=== PATIENT | female | born 1990 | race Two or more races ===

== ENCOUNTER → 2024-11-12 10:30 | Outpatient (CLI) | payer OTHER | END | disposition home or self-care (01) | LOC: PRENATAL 10:30 | PROVIDERS: ATTEND Obstetrics & Gynecology Maternal & Fetal Medicine | DX: O44.00 Complete placenta previa NOS or without hemorrhage, unspecified trimester (principal); O99.280 Endocrine, nutritional and metabolic diseases complicating pregnancy, unspecified trimester; Z3A.21 21 weeks gestation of pregnancy ==

== ENCOUNTER 2025-02-11 11:04 | Outpatient (CLI) | payer OTHER ==
[~2025-02-11 11:04] MED LIST: SYNTHROID100 MCG PO
== END 2025-02-11 11:05 | disposition home or self-care (01) ==
LOC: PRENATAL 11:04
PROVIDERS: ATTEND Obstetrics & Gynecology Maternal & Fetal Medicine
DX: O26.849 Uterine size-date discrepancy, unspecified trimester (principal); O99.280 Endocrine, nutritional and metabolic diseases complicating pregnancy, unspecified trimester; O24.419 Gestational diabetes mellitus in pregnancy, unspecified control; Z3A.34 34 weeks gestation of pregnancy

== ENCOUNTER 2025-02-15 22:04 | Outpatient (CLI) | payer OTHER ==
[2025-02-15 22:18] VITALS: BP 112/74
[2025-02-15] MEDS ORDERED: BETAMETHASONE ACETATE,SOD PHOS 30 MG/5 ML ML ONE (22:37)
[2025-02-15] MEDS ORDERED: BETAMETHASONE ACETATE,SOD PHOS 30 MG/5 ML ML IM STA (22:54)
[2025-02-15] MEDS ORDERED: SYNTHROID88 MCG PO (22:56)
[2025-02-15] MEDS ORDERED: FOLIC ACID0.8 M1 (22:57)
[2025-02-15] MEDS ORDERED: PRENATAL TABLE1 EAC1 PO (22:57)
[2025-02-15] MEDS ORDERED: RINGERS SOLUTION,LACTATED 1,000 ML IV SCH (23:00)
[2025-02-15] MEDS ORDERED: TERBUTALINE SULFATE 1 MG/ML AMPUL SUBCUTANEO SCH (23:00)
[2025-02-15 23:19] VITALS: BP 112/67; O2SAT 99
[2025-02-16 00:07] LABS: URINE APPEARANCE Clear; URINE BILIRRUBIN Negative (NEGATIVE); URINE BLOOD Negative; URINE COLOR Yellow; URINE GLUCOSE Negative (NEGATIVE); URINE KETONE Negative (NEGATIVE); URINE LEUKOCYTE Trace; URINE NITRATE Negative; URINE PROTEIN Negative (NEGATIVE); URINE UROBILINOGEN 0.2 E.U./dl
[2025-02-16 00:11] LABS: URINE BACTERIA 620.2 uL (0.0-1933); URINE EPITHELIAL CELLS 18.4 uL (0.0-38.8); URINE WBC 23.2 uL (0.0-23.2)
[2025-02-16 00:59] LABS: URINE CAST 0.00 uL (0.0-1.40); URINE RBC 1.6 uL (0.0-20.8)
[2025-02-16 01:10] LABS: BASO % 0.3 % (0.1-1.2); EOS # 0.20 (0.04-0.54); EOS % 2.0 % (0.7-7.0); LYMPH # 1.81 (1.18-3.74); LYMPH % 18.3 % (19.3-53.1); MEAN PLATELET VOLUME 10.40 fl (9.4-12.4); MONO # 0.78 (0.24-0.82); MONO % 7.9 % (4.7-12.5); NEUT # 7.06 (1.56-6.13); NEUT % 71.2 % (34.0-71.1); RED CELL DISTRIBUTION WIDTH 13.6 % (11.6-14.4)
[2025-02-16] MEDS ORDERED: NIFEDIPINE 20 MG CAPSULE PO PRN (01:15)
[2025-02-16 03:31] VITALS: BP 115/65; O2SAT 98
[2025-02-16] MEDS ORDERED: LEVOTHYROXINE SODIUM 100 MCG TABLET PO SCH (06:00)
[2025-02-16] MEDS ORDERED: LEVOTHYROXINE SODIUM 88 MCG TABLET PO SCH (06:00)
[2025-02-16 06:55] VITALS: BP 110/61; O2SAT 98
[2025-02-16] MEDS ORDERED: NIFEDIPINE 30 MG TAB.SA.OSM PO NR (08:45)
[2025-02-16] MEDS ORDERED: FOLIC ACID 1 MG TABLET PO SCH (09:00)
[2025-02-16] MEDS ORDERED: PNV,CALCIUM 72/IRON/FOLIC ACID 1 TAB TABLET PO SCH (09:00)
[2025-02-16 11:42] VITALS: BP 121/68
[2025-02-16] MEDS ORDERED: INSULIN LISPRO 1,000 UNIT/10 ML UNITS SUBCUTANEO PRN (14:30)
[2025-02-16 15:02] VITALS: BP 97/58
[2025-02-16 19:00] VITALS: BP 106/69
[2025-02-16 21:29] VITALS: BP 106/69
[2025-02-16] MEDS ORDERED: BETAMETHASONE ACETATE,SOD PHOS 30 MG/5 ML ML IM NR (23:00)
== END 2025-02-16 20:26 | disposition home or self-care (01) ==
LOC: OBS/DEL 22:04
PROVIDERS: ATTEND Obstetrics & Gynecology
DX: O60.03 Preterm labor without delivery, third trimester (principal); Z3A.33 33 weeks gestation of pregnancy

== ENCOUNTER → 2025-03-07 14:07 | Outpatient (CLI) | payer OTHER ==
[~2025-03-07 14:07] MED LIST changes: +FOLIC ACID0.8 M1; +PRENATAL TABLE1 EAC1 PO; +SYNTHROID88 MCG PO
== END | disposition home or self-care (01) ==
LOC: PRENATAL 14:07
PROVIDERS: ATTEND Obstetrics & Gynecology Maternal & Fetal Medicine
DX: O26.843 Uterine size-date discrepancy, third trimester (principal); O36.8130 Decreased fetal movements, third trimester, not applicable or unspecified; O99.283 Endocrine, nutritional and metabolic diseases complicating pregnancy, third trimester; O24.419 Gestational diabetes mellitus in pregnancy, unspecified control; O36.63X0 Maternal care for excessive fetal growth, third trimester, not applicable or unspecified; Z3A.37 37 weeks gestation of pregnancy

== ENCOUNTER 2025-03-20 05:44 | Inpatient (IN) | payer OTHER ==
[~2025-03-20] VITALS: Ht 157.5 cm; Wt 3.2 kg
[2025-03-20 04:48] VITALS: BP 129/82
[2025-03-20] MEDS ORDERED: RINGERS SOLUTION,LACTATED 1,000 ML IV SCH (06:00)
[2025-03-20 07:30] VITALS: BP 118/72
[2025-03-20 07:51] LABS: URINE APPEARANCE Clear; URINE BILIRRUBIN Negative (NEGATIVE); URINE BLOOD Large; URINE COLOR Yellow; URINE GLUCOSE Negative (NEGATIVE); URINE KETONE Negative (NEGATIVE); URINE LEUKOCYTE Trace; URINE NITRATE Negative; URINE PROTEIN Negative (NEGATIVE); URINE UROBILINOGEN 0.2 E.U./dl
[2025-03-20 07:53] LABS: URINE BACTERIA 386.4 uL (0.0-1933); URINE EPITHELIAL CELLS 6.4 uL (0.0-38.8); URINE RBC 9.5 uL (0.0-20.8); URINE WBC 33.4 uL (0.0-23.2)
[2025-03-20 08:03] LABS: BASO % 0.4 % (0.1-1.2); EOS # 0.11 (0.04-0.54); EOS % 1.5 % (0.7-7.0); LYMPH # 1.75 (1.18-3.74); LYMPH % 23.4 % (19.3-53.1); MEAN PLATELET VOLUME 11.20 fl (9.4-12.4); MONO # 0.63 (0.24-0.82); MONO % 8.4 % (4.7-12.5); NEUT # 4.95 (1.56-6.13); NEUT % 66.0 % (34.0-71.1); RED CELL DISTRIBUTION WIDTH 13.8 % (11.6-14.4)
[2025-03-20 08:09] LABS: INR < 0.93
[2025-03-20 09:15] LABS: URINE CAST 0.14 uL (0.0-1.40)
[2025-03-20 10:10] VITALS: BP 118/72; BP 129/82
[2025-03-20] MEDS ORDERED: MORPHINE SULFATE 4 MG/ML VIAL IV ONE ×2 (11:15→14:45)
[2025-03-20] MEDS ORDERED: OXYTOCIN 500 ML IV SCH (11:15)
[2025-03-20 14:34] VITALS: BP 133/78
[2025-03-20 15:15] VITALS: BP 124/88
[2025-03-20] MEDS ORDERED: ERYTHROMYCIN BASE OPHT 1GM EACH TUBE OP ONE (19:15)
[2025-03-20] MEDS ORDERED: OXYTOCIN 10 UNITS/ML VIAL IV ONE (19:15)
[2025-03-20 20:44] VITALS: BP 122/68
[2025-03-20] MEDS ORDERED: MORPHINE SULFATE 4 MG/ML CARTRIDGE IV SCH (21:00)
[2025-03-21 00:14] VITALS: BP 120/61
[2025-03-21 05:00] VITALS: BP 120/61
[2025-03-21] MEDS ORDERED: OxyCODONE HCL 5 MG TABLET (ROXICODONE) PO SCH (05:00)
[2025-03-21 07:06] LABS: BASO % 0.3 % (0.1-1.2); EOS # 0.01 (0.04-0.54); EOS % 0.1 % (0.7-7.0); LYMPH # 1.49 (1.18-3.74); LYMPH % 8.3 % (19.3-53.1); MEAN PLATELET VOLUME 11.00 fl (9.4-12.4); MONO # 1.16 (0.24-0.82); MONO % 6.4 % (4.7-12.5); NEUT # 15.26 (1.56-6.13); NEUT % 84.5 % (34.0-71.1); RED CELL DISTRIBUTION WIDTH 14.3 % (11.6-14.4)
[2025-03-21] MEDS ORDERED: PNV,CALCIUM 72/IRON/FOLIC ACID 1 TAB TABLET PO SCH (08:00)
[2025-03-21] MEDS ORDERED: DOCUSATE SODIUM 100MG CAP PO SCH (08:00)
[2025-03-21] MEDS ORDERED: SIMETHICONE 125 MG CAPSULE PO SCH (08:00)
[2025-03-21 08:48] VITALS: BP 103/71
[2025-03-21] MEDS ORDERED: ACETAMINOPHEN 500 MG GEL..CAP PO PRN (11:15)
[2025-03-21] MEDS ORDERED: LEVOTHYROXINE SODIUM 125 MCG TABLET PO NR (11:45)
[2025-03-21 16:38] VITALS: BP 126/73
[2025-03-22] VITALS: BP 116/72
[2025-03-22] MEDS ORDERED: LEVOTHYROXINE SODIUM 125 MCG TABLET PO SCH (06:00)
[2025-03-22 08:50] VITALS: BP 100/72
[2025-03-22 16:13] VITALS: BP 121/77
[2025-03-23] VITALS: BP 114/72
[2025-03-23 09:34] VITALS: BP 116/71
[2025-03-23 16:00] VITALS: BP 135/75
== END 2025-03-23 20:16 | disposition home or self-care (01) | DRG 788 ==
LOC: OBS/DEL 05:44 → OB/GYN 11:00 → LDR 11:00 → OB/GYN 18:44
PROVIDERS: Obstetrics & Gynecology; ADMIT Obstetrics & Gynecology; ATTEND Obstetrics & Gynecology
PROC: BY4FZZZ Ultrasonography of Third Trimester, Single Fetus (ICD-10-PCS; 2025-03-20)
PROC: 4A1HXCZ Monitoring of Products of Conception, Cardiac Rate, External Approach (ICD-10-PCS; 2025-03-20)
PROC: 10D00Z1 Extraction of Products of Conception, Low, Open Approach (ICD-10-PCS; principal; 2025-03-20 16:15)
DX: O82 Encounter for cesarean delivery without indication (principal); O33.8 Maternal care for disproportion of other origin; O62.1 Secondary uterine inertia; Z3A.38 38 weeks gestation of pregnancy; Z37.0 Single live birth